=== PATIENT | male | born 1960 | race Asian ===

== ENCOUNTER 2023-04-03 15:00 | Outpatient (CLI) | payer BC | END 2023-04-03 15:01 | disposition home or self-care (01) | LOC: CSHRAD 15:00 | PROVIDERS: ATTEND Family Medicine Sports Medicine | DX: M10.9 Gout, unspecified (principal) ==

== ENCOUNTER 2023-11-29 15:03 | Outpatient (CLI) | payer BC | END 2023-11-29 15:04 | disposition home or self-care (01) | LOC: CSHRAD 15:03 | PROVIDERS: ATTEND Family Medicine Sports Medicine | DX: M25.561 Pain in right knee (principal); M25.562 Pain in left knee | CPT/HCPCS: 73565 ==